=== PATIENT | female | born 2000 | race Caucasian/White ===

== ENCOUNTER 2021-07-21 19:07 | Emergency (ER) | payer OTHER | END 2021-07-21 20:40 | disposition left against medical advice (07) | LOC: FER 19:07 | DX: Z53.8 Procedure and treatment not carried out for other reasons (principal) | CPT/HCPCS: 87880 ==

== ENCOUNTER 2021-11-26 21:56 | Emergency (ER) | payer OTHER ==
[2021-11-26] MEDS ORDERED: MEDROL 4MG DOSEP4 MG PO (22:32)
[2021-11-26] MEDS ORDERED: VENTOLIN HFA IN18 GM INH (22:32)
== END 2021-11-26 22:45 | disposition home or self-care (01) ==
LOC: FER 21:56
DX: U07.1 COVID-19 (principal)
CPT/HCPCS: 99283; J1100

== ENCOUNTER 2022-02-24 13:49 | Emergency (ER) | payer OTHER ==
[~2022-02-24 13:49] MED LIST: MEDROL 4MG DOSEP4 MG PO; VENTOLIN HFA IN18 GM INH
[2022-02-24 15:41] LABS: BILIRUBIN NEGATIVE (NEGATIVE); BLOOD 3+ Ery/uL (NEGATIVE); CLARITY CLEAR (CLEAR); COLOR YELLOW (YELLOW); GLUCOSE (U) NORMAL (NORMAL); LEUKOCYTES NEGATIVE Leu/uL (NEGATIVE); NITRITE NEGATIVE (NEGATIVE); PROTEIN NEGATIVE (NEGATIVE); UROBILINOGEN 0.2 mg/dL (0.2-1.0); pH 7.5 (5.0-9.0)
[2022-02-24 15:45] LABS: SQUAMOUS EPITHELIAL CELLS RARE; URINARY WBC RARE
[2022-02-24 16:52] LABS: BASOPHIL 0.2 % (0-2); EOSINOPHIL 0.6 % (0-5); HCT 44.2 % (37.0-47.0); LYMPHOCYTE 19.9 % (15-48); MCHC 33.9 g/dL (32.0-36.0); MCV 100.2 fL (78.0-100.0); MONOCYTE 6.2 % (0-12); MPV 11.2 fL (6.0-9.5); NEUTROPHIL 72.9 % (41-80); NRBC 0; PLT 216 K/uL (150-400); RBC 4.41 M/uL (4.20-5.40); RDW 12.1 % (11.5-14.0); WBC 8.9 K/uL (4.0-10.5)
[2022-02-24 17:09] LABS: ALBUMIN 4.4 g/dL (3.4-5.0); BILIRUBIN - TOTAL 0.5 mg/dL (0.2-1.0); BUN/CREAT RATIO (CALC) 11.4 RATIO; CREATININE 0.7 mg/dL (0.51-0.95); GLOBULIN (CALCULATION) 3.5 g/dL; POTASSIUM 3.3 mmol/L (3.5-5.1); TOTAL PROTEIN 7.9 g/dL (6.4-8.2)
[2022-02-24] MEDS ORDERED: MOTRIN600 MG PO (18:28)
[2022-02-24] MEDS ORDERED: FLOMAX0.4 MG PO (18:28)
[2022-02-24] MEDS ORDERED: ONDANSETRON ODT4 MG PO (18:28)
== END 2022-02-24 17:30 | disposition home or self-care (01) ==
LOC: FER 13:49
PROVIDERS: Physician Assistant
DX: N20.1 Calculus of ureter (principal); F17.210 Nicotine dependence, cigarettes, uncomplicated; Z28.311 Partially vaccinated for COVID-19
CPT/HCPCS: 36415; 80053; 81001; 84703; 85025